=== PATIENT | female | born 1935 | race Caucasian/White ===

== ENCOUNTER 2021-11-14 02:15 | Inpatient (IN) | payer MEDICARE, OTHER ==
[~2021-11-14] VITALS: Ht 162.6 cm; Wt 68.5 kg
[2021-11-14] VITALS (9 sets, daily range): BP systolic 105–145; BP diastolic 50–71
[~2021-11-14 02:15] MED LIST: ASPIRIN81 MG PO; BIOTIN1 MG PO; FUROSEMIDE40 MG PO; LEVOTHYROXINE50 MCG PO; LISINOPRIL10 MG PO; LORAZEPAM0.5 MG PO; OMEPRAZOLE40 MG PO; VITAMIN D1000 UNI1 PO
[2021-11-14] MEDS ORDERED: ONDANSETRON HCL INJ 2MG/ML 2ML 2 MG/ML VIAL IV STA ×2 (02:23→04:42)
[2021-11-14 02:31] LABS: BASOPHILS # (AUTO) 0.1 (0.0-0.1); BASOPHILS % 0.3 % (0.0-1.0); EOSINOPHILS # (AUTO) 0.1 (0.0-0.4); EOSINOPHILS % 0.3 % (0.0-6.0); LYMPHOCYTES # (AUTO) 1.9 (1.0-3.2); LYMPHOCYTES % 9.5 % (18.0-39.1); MEAN CORPUSCULAR HEMOGLOBIN 28.8 pg (28-32); MEAN CORPUSCULAR HGB CONC 32.2 g/dL (31-35); MEAN CORPUSCULAR VOLUME 89.4 fL (81-99); MONOCYTES # (AUTO) 1.3 (0.2-0.8); MONOCYTES % 6.7 % (4.4-11.3); NEUTROPHILS # (AUTO) 16.1 (2.1-6.9); NEUTROPHILS % 81.2 % (38.7-80.0); PLATELET COUNT 510 x10e3/uL (140-360); RED BLOOD COUNT 2.36 x10e6/uL (3.6-5.1); RED CELL DISTRIBUTION WIDTH 14.3 % (11.7-14.4)
[2021-11-14] MEDS: SODIUM CHLORIDE 0.9% 1000ML 1,000 ML IV SCH ×3 (02:32→14:48)
[2021-11-14 02:33] LABS: HEMATOCRIT 21.1 % (34.2-44.1); HEMOGLOBIN 6.8 g/dL (12.0-16.0)
[2021-11-14 02:37] LABS: INR 1.06; PROTHROMBIN TIME 14.8 seconds (11.9-14.5)
[2021-11-14 02:38] LABS: PARTIAL THROMBOPLASTIN TIME 27.7 seconds (23.8-35.5)
[2021-11-14] MEDS ORDERED: SODIUM CHLORIDE 0.9% 250ML 250 ML IV ONE (02:45)
[2021-11-14] MEDS ORDERED: SODIUM CHLORIDE 0.9% 1000ML 1,000 ML IV ONE (02:45)
[2021-11-14 02:47] LABS: ALBUMIN 1.8 g/dL (3.5-5.0); ALBUMIN/GLOBULIN RATIO 0.5 (0.8-2.0); ANION GAP 13.9 mmol/L (8-16); CALCIUM 8.3 mg/dL (8.4-10.2); CREATININE, SERUM 1.05 mg/dL (0.57-1.11); POTASSIUM 4.9 mmol/L (3.5-5.1)
[2021-11-14 02:54] LABS: CREATINE KINASE MB 1.1 ng/mL (0-5.0)
[2021-11-14] MEDS ORDERED: SODIUM CHLORIDE 0.9% 100 ML ONE (03:01)
[2021-11-14] MEDS ORDERED: IOPAMIDOL 370 MG/ML 200 ML INFUS..BTL INJ ONE (03:02)
[2021-11-14] MEDS: Pantoprazole IV 40 MG in SODIUM CHLORIDE 0.9% 50ML 50 ML IV SCH ×5 (03:56→23:00)
[2021-11-14] MEDS ORDERED: DONEPEZIL HCL5 MG PO (06:03)
[2021-11-14] MEDS ORDERED: AMLODIPINE BESY10 MG PO (06:03)
[2021-11-14] MEDS: CEFTRIAXONE 1 GM in SODIUM CHLORIDE 0.9% 50ML 50 ML IV SCH (10:21)
[2021-11-14] MEDS ORDERED: SODIUM CHLORIDE 0.9% 250ML 250 ML ONE (11:21)
[2021-11-14 12:04] LABS: HEMOGLOBIN 7.1 g/dL (12.0-16.0)
[2021-11-14 12:08] LABS: HEMATOCRIT 21.9 % (34.2-44.1)
[2021-11-14 14:28] LABS: % IRON SATURATION 35 % (15-50); IRON 59 ug/dL (50-170); TOTAL IRON BINDING CAPACITY 171 ug/dL (261-478); TRANSFERRIN 122 mg/dL (180-382)
[2021-11-14] MEDS ORDERED: HYDRALAZINE HCL 20 MG/ML VIAL IV PRN (15:00)
[2021-11-14] MEDS ORDERED: ACETAMINOPHEN 325 MG/10 ML UDC PEG PRN (15:00)
[2021-11-14] MEDS ORDERED: ONDANSETRON HCL INJ 2MG/ML 2ML 2 MG/ML VIAL IV PRN (15:00)
[2021-11-14] MEDS: METRONIDAZOLE 500MG/NS 100ML 100 ML IV SCH ×2 (15:47→21:39)
[2021-11-14 19:33] LABS: HEMATOCRIT 23.1 % (34.2-44.1); HEMOGLOBIN 7.4 g/dL (12.0-16.0)
[2021-11-14] MEDS: DONEPEZIL HCL 5 MG TAB PO SCH (21:00)
[2021-11-14] MEDS ORDERED: MELATONIN 3 MG TAB PO PRN (21:00)
[2021-11-15] VITALS (7 sets, daily range): BP systolic 105–145; BP diastolic 52–74
[2021-11-15 00:29] LABS: HEMATOCRIT 22.2 % (34.2-44.1)
[2021-11-15] MEDS: SODIUM CHLORIDE 0.9% 1000ML 1,000 ML IV SCH (02:08)
[2021-11-15] MEDS: Pantoprazole IV 40 MG in SODIUM CHLORIDE 0.9% 50ML 50 ML IV SCH ×6 (04:15→22:50)
[2021-11-15 04:59] LABS: HEMATOCRIT 23.4 % (34.2-44.1); HEMOGLOBIN 7.3 g/dL (12.0-16.0)
[2021-11-15] MEDS: LEVOTHYROXINE SODIUM 25 MCG TABLET PO SCH (05:02)
[2021-11-15] MEDS: METRONIDAZOLE 500MG/NS 100ML 100 ML IV SCH ×3 (05:08→21:28)
[2021-11-15 06:33] LABS: ALBUMIN 1.9 g/dL (3.5-5.0); ALBUMIN/GLOBULIN RATIO 0.7 (0.8-2.0); ANION GAP 9.5 mmol/L (8-16); CALCIUM 8.2 mg/dL (8.4-10.2); CREATININE, SERUM 1.23 mg/dL (0.57-1.11); POTASSIUM 4.5 mmol/L (3.5-5.1)
[2021-11-15] MEDS: MULTIVITAMINS/MINERALS TAB PO SCH (09:00)
[2021-11-15] MEDS: CHOLECALCIFEROL 400 UNIT TAB PO SCH (09:00)
[2021-11-15] MEDS: AMLODIPINE BESYLATE 10 MG TAB PO SCH (09:00)
[2021-11-15] MEDS: CEFTRIAXONE 1 GM in SODIUM CHLORIDE 0.9% 50ML 50 ML IV SCH (10:49)
[2021-11-15] MEDS: BALSAM PERU/CASTOR OIL 60 GM OINT...G. TP SCH (10:50)
[2021-11-15 12:22] LABS: HEMATOCRIT 22.3 % (34.2-44.1); HEMOGLOBIN 7.2 g/dL (12.0-16.0)
[2021-11-15] MEDS ORDERED: GLUCAGON FOR INJ 1 MG VIAL ONE (12:56)
[2021-11-15] MEDS ORDERED: LIDOCAINE HCL 2% LOCAL INJ 5 ML SDV VIAL INJ ONE (12:56)
[2021-11-15] MEDS ORDERED: PROPOFOL IV EMULSION 10 MG/ML 20 ML VIAL ONE (12:56)
[2021-11-15] MEDS ORDERED: MIDAZOLAM HCL 2 MG/2 ML VIAL ONE (13:17)
[2021-11-15] MEDS ORDERED: FENTANYL CITRATE/PF 100MCG/2 ML INJ ONE (13:17)
[2021-11-15 18:14] LABS: HEMATOCRIT 20.5 % (34.2-44.1); HEMOGLOBIN 6.4 g/dL (12.0-16.0)
[2021-11-15] MEDS ORDERED: SODIUM CHLORIDE 0.9% 250ML 250 ML IV ONE (19:00)
[2021-11-15] MEDS: DONEPEZIL HCL 5 MG TAB PO SCH (21:28)
[2021-11-15] MEDS ORDERED: SODIUM CHLORIDE 0.9% 250ML 250 ML ONE (23:29)
[2021-11-15] MEDS ORDERED: PHYTONADIONE 10 MG/ML AMP IV ONE (23:45)
[2021-11-16 00:02] VITALS: BP 127/55
[2021-11-16] MEDS ORDERED: SODIUM CHLORIDE 0.9% 100 ML ONE (01:52)
[2021-11-16 04:00] VITALS: BP 135/55
[2021-11-16] MEDS: Pantoprazole IV 40 MG in SODIUM CHLORIDE 0.9% 50ML 50 ML IV SCH ×5 (04:45→23:34)
[2021-11-16] MEDS: LEVOTHYROXINE SODIUM 25 MCG TABLET PO SCH (05:16)
[2021-11-16] MEDS: METRONIDAZOLE 500MG/NS 100ML 100 ML IV SCH ×3 (05:16→21:13)
[2021-11-16 05:32] LABS: BASOPHILS # (AUTO) 0.1 (0.0-0.1); BASOPHILS % 0.4 % (0.0-1.0); EOSINOPHILS # (AUTO) 0.5 (0.0-0.4); EOSINOPHILS % 2.7 % (0.0-6.0); HEMATOCRIT 23.3 % (34.2-44.1); HEMOGLOBIN 7.6 g/dL (12.0-16.0); LYMPHOCYTES # (AUTO) 1.8 (1.0-3.2); LYMPHOCYTES % 10.8 % (18.0-39.1); MEAN CORPUSCULAR HEMOGLOBIN 29.7 pg (28-32); MEAN CORPUSCULAR HGB CONC 32.6 g/dL (31-35); MONOCYTES # (AUTO) 1.4 (0.2-0.8); MONOCYTES % 8.1 % (4.4-11.3); NEUTROPHILS # (AUTO) 12.8 (2.1-6.9); NEUTROPHILS % 75.4 % (38.7-80.0); PLATELET COUNT 450 x10e3/uL (140-360); RED BLOOD COUNT 2.56 x10e6/uL (3.6-5.1)
[2021-11-16 05:57] LABS: ALBUMIN 2.1 g/dL (3.5-5.0); ALBUMIN/GLOBULIN RATIO 0.8 (0.8-2.0); CALCIUM 8.3 mg/dL (8.4-10.2); MAGNESIUM 2.3 MG/DL (1.3-2.1)
[2021-11-16] MEDS: SODIUM CHLORIDE 0.9% 1000ML 1,000 ML IV SCH (06:11)
[2021-11-16 07:42] LABS: FERRITIN 170.48 ng/mL (4.63-204.00)
[2021-11-16 08:41] VITALS: BP 135/55
[2021-11-16] MEDS: AMLODIPINE BESYLATE 10 MG TAB PO SCH (09:00)
[2021-11-16] MEDS: CEFTRIAXONE 1 GM in SODIUM CHLORIDE 0.9% 50ML 50 ML IV SCH (09:00)
[2021-11-16] MEDS: CHOLECALCIFEROL 400 UNIT TAB PO SCH (09:00)
[2021-11-16] MEDS: MULTIVITAMINS/MINERALS TAB PO SCH (09:00)
[2021-11-16 12:25] LABS: HEMATOCRIT 24.1 % (34.2-44.1); HEMOGLOBIN 7.6 g/dL (12.0-16.0)
[2021-11-16 17:55] LABS: HEMOGLOBIN 7.1 g/dL (12.0-16.0)
[2021-11-16 17:58] LABS: HEMATOCRIT 22.1 % (34.2-44.1)
[2021-11-16] MEDS: BALSAM PERU/CASTOR OIL 60 GM OINT...G. TP SCH (18:30)
[2021-11-16] MEDS ORDERED: SODIUM CHLORIDE 0.9% 250ML 250 ML IV ONE (18:35)
[2021-11-16 20:00] VITALS: BP 136/52
[2021-11-16 20:03] VITALS: BP 136/52
[2021-11-16] MEDS: DONEPEZIL HCL 5 MG TAB PO SCH (21:13)
[2021-11-16] MEDS ORDERED: SODIUM CHLORIDE 0.9% 250ML 250 ML ONE (23:27)
[2021-11-17] VITALS (9 sets, daily range): BP systolic 113–136; BP diastolic 55–76
[2021-11-17] MEDS: Pantoprazole IV 40 MG in SODIUM CHLORIDE 0.9% 50ML 50 ML IV SCH ×5 (01:19→19:49)
[2021-11-17] MEDS: METRONIDAZOLE 500MG/NS 100ML 100 ML IV SCH ×3 (05:01→22:00)
[2021-11-17] MEDS: LEVOTHYROXINE SODIUM 25 MCG TABLET PO SCH (05:01)
[2021-11-17 05:38] LABS: HEMATOCRIT 27.9 % (34.2-44.1)
[2021-11-17] MEDS: MULTIVITAMINS/MINERALS TAB PO SCH (09:54)
[2021-11-17] MEDS: AMLODIPINE BESYLATE 10 MG TAB PO SCH (09:55)
[2021-11-17] MEDS: CHOLECALCIFEROL 400 UNIT TAB PO SCH (09:55)
[2021-11-17] MEDS: CEFTRIAXONE 1 GM in SODIUM CHLORIDE 0.9% 50ML 50 ML IV SCH (10:00)
[2021-11-17] MEDS: BALSAM PERU/CASTOR OIL 60 GM OINT...G. TP SCH (12:00)
[2021-11-17 18:42] LABS: HEMATOCRIT 25.9 % (34.2-44.1); HEMOGLOBIN 8.5 g/dL (12.0-16.0)
[2021-11-17] MEDS: QUETIAPINE FUMARATE 25 MG TAB PO PRN (20:25)
[2021-11-17] MEDS: DONEPEZIL HCL 5 MG TAB PO SCH (20:25)
[2021-11-18] VITALS (8 sets, daily range): BP systolic 109–142; BP diastolic 54–74
[2021-11-18] MEDS: Pantoprazole IV 40 MG in SODIUM CHLORIDE 0.9% 50ML 50 ML IV SCH ×5 (00:10→20:59)
[2021-11-18] MEDS: METRONIDAZOLE 500MG/NS 100ML 100 ML IV SCH ×3 (04:58→22:00)
[2021-11-18] MEDS: LEVOTHYROXINE SODIUM 25 MCG TABLET PO SCH (04:58)
[2021-11-18 05:34] LABS: HEMOGLOBIN 9.3 g/dL (12.0-16.0)
[2021-11-18] MEDS ORDERED: ONDANSETRON HCL 4 MG ORAL DISINTEGRATING TAB PO PRN (07:15)
[2021-11-18] MEDS: AMLODIPINE BESYLATE 10 MG TAB PO SCH (09:51)
[2021-11-18] MEDS: CHOLECALCIFEROL 400 UNIT TAB PO SCH (09:51)
[2021-11-18] MEDS: MULTIVITAMINS/MINERALS TAB PO SCH (09:51)
[2021-11-18] MEDS: CEFTRIAXONE 1 GM in SODIUM CHLORIDE 0.9% 50ML 50 ML IV SCH (09:51)
[2021-11-18] MEDS: BALSAM PERU/CASTOR OIL 60 GM OINT...G. TP SCH (13:44)
[2021-11-18] MEDS ORDERED: HEPARIN SOD (PORCINE) 1000 UNIT/ML 30ML INJ ONE (19:16)
[2021-11-18] MEDS: DONEPEZIL HCL 5 MG TAB PO SCH (20:58)
[2021-11-18] MEDS: QUETIAPINE FUMARATE 25 MG TAB PO PRN (20:58)
[2021-11-19] VITALS: BP 134/64
[2021-11-19] MEDS: Pantoprazole IV 40 MG in SODIUM CHLORIDE 0.9% 50ML 50 ML IV SCH ×2 (02:45→10:00)
[2021-11-19 04:00] VITALS: BP 126/55
[2021-11-19] MEDS: METRONIDAZOLE 500MG/NS 100ML 100 ML IV SCH (06:18)
[2021-11-19] MEDS: LEVOTHYROXINE SODIUM 25 MCG TABLET PO SCH (06:18)
[2021-11-19 07:28] LABS: INR 1.11; PROTHROMBIN TIME 15.3 seconds (11.9-14.5)
[2021-11-19 07:42] VITALS: BP 116/49
[2021-11-19 08:02] VITALS: BP 116/49
[2021-11-19] MEDS: AMLODIPINE BESYLATE 10 MG TAB PO SCH (09:00)
[2021-11-19] MEDS: BALSAM PERU/CASTOR OIL 60 GM OINT...G. TP SCH (09:05)
[2021-11-19] MEDS: CHOLECALCIFEROL 400 UNIT TAB PO SCH (09:05)
[2021-11-19] MEDS: CEFTRIAXONE 1 GM in SODIUM CHLORIDE 0.9% 50ML 50 ML IV SCH (09:05)
[2021-11-19] MEDS: MULTIVITAMINS/MINERALS TAB PO SCH (09:05)
[2021-11-19 12:10] VITALS: BP 115/47
[2021-11-19 16:07] VITALS: BP 116/60
== END 2021-11-19 19:17 | DRG 381 ==
LOC: ER 02:21 → ERHOLD 04:44 → MED/SURG2 05:26
PROVIDERS: ADMIT Internal Medicine; ATTEND Internal Medicine
PROC: 30233N1 Transfusion of Nonautologous Red Blood Cells into Peripheral Vein, Percutaneous Approach (ICD-10-PCS; principal; 2021-11-14)
PROC: 0DB68ZX Excision of Stomach, Via Natural or Artificial Opening Endoscopic, Diagnostic (ICD-10-PCS; 2021-11-15)
PROC: 0DB78ZX Excision of Stomach, Pylorus, Via Natural or Artificial Opening Endoscopic, Diagnostic (ICD-10-PCS; 2021-11-15)
DX: K22.11 Ulcer of esophagus with bleeding (principal); D62 Acute posthemorrhagic anemia; K26.4 Chronic or unspecified duodenal ulcer with hemorrhage; I10 Essential (primary) hypertension; E03.9 Hypothyroidism, unspecified; E78.5 Hyperlipidemia, unspecified; G20 Parkinson's disease; F02.80 Dementia in other diseases classified elsewhere, unspecified severity, without behavioral disturbance, psychotic disturbance, mood disturbance, and anxiety; F41.9 Anxiety disorder, unspecified; K44.9 Diaphragmatic hernia without obstruction or gangrene; N28.9 Disorder of kidney and ureter, unspecified; Z88.5 Allergy status to narcotic agent; Z88.0 Allergy status to penicillin; Z86.73 Personal history of transient ischemic attack (TIA), and cerebral infarction without residual deficits; Z87.440 Personal history of urinary (tract) infections; Z20.822 Contact with and (suspected) exposure to COVID-19
CPT/HCPCS: 36415; 43239; 71045; 74174; 78278; 80053; 82550; 82553; 82607; 82728; 82746; 83540; 83735; 84466; 84484; 85014; 85018; 85025; 85045; 85610; 85730; 86850; 86900; 86920; 88304; 88305; 88312; 93005; 96361; 97139; 99251; 99284; A9512; J0696; J1610; J1644; J2001; J2250; J2405; J3010; J3430; J7030; J7050; P9016; Q9967; U0002

== ENCOUNTER 2021-11-25 20:46 | Emergency (ER) | payer MEDICARE, OTHER ==
[~2021-11-25] VITALS: Ht 162.6 cm; Wt 68.5 kg
[~2021-11-25 20:46] MED LIST changes: +AMLODIPINE BESY10 MG PO; +DONEPEZIL HCL5 MG PO
[2021-11-25] MEDS ORDERED: ONDANSETRON HCL INJ 2MG/ML 2ML 2 MG/ML VIAL IV STA (20:56)
[2021-11-25 21:16] LABS: BASOPHILS % 0.2 % (0.0-1.0); EOSINOPHILS # (AUTO) 0.1 (0.0-0.4); EOSINOPHILS % 0.7 % (0.0-6.0); HEMATOCRIT 25.6 % (34.2-44.1); HEMOGLOBIN 8.1 g/dL (12.0-16.0); LYMPHOCYTES # (AUTO) 1.1 (1.0-3.2); LYMPHOCYTES % 9.5 % (18.0-39.1); MEAN CORPUSCULAR HEMOGLOBIN 29.5 pg (28-32); MEAN CORPUSCULAR HGB CONC 31.6 g/dL (31-35); MEAN CORPUSCULAR VOLUME 93.1 fL (81-99); MONOCYTES % 8.7 % (4.4-11.3); NEUTROPHILS # (AUTO) 9.7 (2.1-6.9); NEUTROPHILS % 80.4 % (38.7-80.0); PLATELET COUNT 476 x10e3/uL (140-360); RED BLOOD COUNT 2.75 x10e6/uL (3.6-5.1); RED CELL DISTRIBUTION WIDTH 16.3 % (11.7-14.4)
[2021-11-25 21:24] LABS: INR 1.05; PARTIAL THROMBOPLASTIN TIME 27.9 seconds (23.8-35.5); PROTHROMBIN TIME 14.7 seconds (11.9-14.5)
[2021-11-25 21:34] LABS: ALBUMIN 2.1 g/dL (3.5-5.0); ALBUMIN/GLOBULIN RATIO 0.5 (0.8-2.0); ANION GAP 12.3 mmol/L (8-16); CALCIUM 8.2 mg/dL (8.4-10.2); CREATININE, SERUM 0.88 mg/dL (0.57-1.11); POTASSIUM 4.3 mmol/L (3.5-5.1)
[2021-11-25 21:40] LABS: CREATINE KINASE MB 1.3 ng/mL (0-5.0)
[2021-11-25] MEDS: SODIUM CHLORIDE 0.9% 1000ML 1,000 ML IV SCH ×2 (21:42→23:30)
[2021-11-25] MEDS ORDERED: IOPAMIDOL 370 MG/ML 200 ML INFUS..BTL INJ ONE (22:04)
[2021-11-25] MEDS ORDERED: SODIUM CHLORIDE 0.9% 50ML 100 ML ONE (22:04)
[2021-11-25 22:49] LABS: CLARITY,URINE SL CLOUDY (CLEAR); COLOR,URINE YELLOW (YELLOW); KETONES,URINE NEGATIVE (NEGATIVE); LEUKOCYTE ESTERASE ,URINE NEGATIVE (NEGATIVE); NITRITE,URINE NEGATIVE (NEGATIVE); PROTEIN,URINE DIPSTICK NEGATIVE (NEGATIVE); URINE UROBILINOGEN 0.2 mg/dL (0.2 - 1)
[2021-11-25 22:55] LABS: AMORPHOUS SEDIMENT,URINE MODERATE (FEW); BACTERIA,URINE FEW /HPF; EPITHELIAL CELLS,URINE RARE /LPF; RBC,URINE 0-5 /HPF (0-5); WBC,URINE (MAN) 0-5 /HPF (0-5)
[2021-11-25] MEDS ORDERED: ONDANSETRON HCL INJ 2MG/ML 2ML 2 MG/ML VIAL IV PRN (23:30)
[2021-11-25] MEDS: Pantoprazole IV 40 MG in SODIUM CHLORIDE 0.9% 50ML 50 ML IV SCH (23:40)
[2021-11-26] MEDS ORDERED: MELATONIN 3 MG TAB PO PRN (01:15)
[2021-11-26] MEDS ORDERED: GUAIFENESIN/DEXTROMETHORPHAN LIQD 5 ML UDC PO PRN (01:15)
[2021-11-26] MEDS ORDERED: ACETAMINOPHEN 325 MG TAB PO PRN (01:15)
[2021-11-26] MEDS ORDERED: HYDRALAZINE HCL 20 MG/ML VIAL IV PRN (01:15)
[2021-11-26] MEDS ORDERED: ONDANSETRON HCL INJ 2MG/ML 2ML 2 MG/ML VIAL IV PRN (01:15)
[2021-11-26] MEDS: Pantoprazole IV 40 MG in SODIUM CHLORIDE 0.9% 50ML 50 ML IV SCH ×4 (04:15→18:56)
[2021-11-26] MEDS: SODIUM CHLORIDE 0.9% 1000ML 1,000 ML IV SCH ×2 (05:00→13:35)
[2021-11-26 06:48] LABS: HEMOGLOBIN 7.1 g/dL (12.0-16.0)
[2021-11-26 06:50] LABS: HEMATOCRIT 22.8 % (34.2-44.1)
[2021-11-26 07:30] VITALS: BP 114/45
[2021-11-26] MEDS ORDERED: LEVOTHYROXINE SODIUM 50 MCG TAB PO SCH (07:30)
[2021-11-26] MEDS ORDERED: SUCRALFATE 1 GM TAB PO SCH (07:30)
[2021-11-26 08:30] VITALS: BP 110/44
[2021-11-26] MEDS ORDERED: CHOLECALCIFEROL 1,000 UNIT TAB PO SCH (09:00)
[2021-11-26] MEDS ORDERED: MULTIVITAMINS/MINERALS TAB PO SCH (09:00)
[2021-11-26] MEDS ORDERED: AMLODIPINE BESYLATE 10 MG TAB PO SCH (09:00)
[2021-11-26 09:30] VITALS: BP 113/42
[2021-11-26 10:30] VITALS: BP 122/52
[2021-11-26] MEDS ORDERED: ACETAMINOPHEN 325 MG TAB PO STA (10:55)
[2021-11-26] MEDS ORDERED: SODIUM CHLORIDE 0.9% 250ML 250 ML IV ONE (11:00)
[2021-11-26] MEDS ORDERED: FUROSEMIDE INJ 10 MG/ML 2 ML VIAL IV PRN (11:00)
[2021-11-26] MEDS ORDERED: SUCRALFATE 1 GM/10 ML SUSP PO SCH (11:30)
[2021-11-26] MEDS ORDERED: SODIUM CHLORIDE 0.9% 250ML 250 ML ONE (12:18)
[2021-11-26 12:19] LABS: HEMATOCRIT 24.7 % (34.2-44.1); HEMOGLOBIN 7.6 g/dL (12.0-16.0)
[2021-11-26] MEDS ORDERED: LORAZEPAM 0.5 MG TAB PO SCH (21:00)
== END 2021-11-26 18:59 | disposition other institution (70) ==
LOC: ER 20:52 → ERHOLD 23:25 → UNDOADMIN 23:25
DX: D64.9 Anemia, unspecified (principal); K92.0 Hematemesis; K92.2 Gastrointestinal hemorrhage, unspecified; I26.99 Other pulmonary embolism without acute cor pulmonale; G20 Parkinson's disease; F02.80 Dementia in other diseases classified elsewhere, unspecified severity, without behavioral disturbance, psychotic disturbance, mood disturbance, and anxiety; E03.9 Hypothyroidism, unspecified; E78.5 Hyperlipidemia, unspecified; F41.9 Anxiety disorder, unspecified; R94.31 Abnormal electrocardiogram [ECG] [EKG]
CPT/HCPCS: 36415 ×2; 74174; 80053; 81001; 82550; 82553; 83605; 84484; 85014; 85018; 85025; 85610; 85730; 86850; 86900; 86920; 87040; 87086; 87186; 93005; 93970; 94799 ×2; 99284; C9113 ×2; J2405; J7030 ×2; J7050; P9016; Q9967; U0002